=== PATIENT | female | born 1995 | race Caucasian/White ===

== ENCOUNTER → 2016-05-25 | Outpatient (CLI) | payer OTHER ==
--- NOTE | 2016-05-25 11:00 | USB ---
Reason for exam: clinical finding. US Breast LT Left breast ultrasound including all four quadrants, the retroareolar region and axilla demonstrates a 23 x 13 x 23mm solid, hypoechoic lesion with vascularity at palpable. These results were verbally communicated with the patient and result sheet given to the patient on 05/25/16. ASSESSMENT: Suspicious, BI-RAD 4 RECOMMENDATION: Ultrasound core biopsy of the left breast. Called Dr. Carbajal with mammographic findings and has scheduled an appointment for the patient for 06/21/16 at 10:[address] Godwin. Ultrasound core biopsy scheduled for 05/31/16 at 8:00. PRELIMINARY REPORT CALLED AND FAXED TO DR. GODWIN ON 05/25/16 AT 300/TP.
== END | disposition home or self-care (01) ==
LOC: RADUSWWP 08:37
PROVIDERS: ATTEND Pediatrics
DX: R92.8 Other abnormal and inconclusive findings on diagnostic imaging of breast (principal); N63 Unspecified lump in breast

== ENCOUNTER → 2016-05-31 | Day surgery (SDC) | payer OTHER ==
[~2016-05-31] MED LIST: ALPRAZolam 0.25 MG TAB ONE; BACITRACIN OINT 1 EACH PACKET TOPICAL ONE; LIDOCAINE 1% INJ 10MG/ML (20 ML MDV) ONE; SODIUM BICARB 4% 5 ML VIAL (0.48 MEQ/ML) ONE
--- NOTE | 2016-05-31 11:45 | USB ---
EXAMINATION TYPE: US biopsy breast VAD LT DATE OF EXAM: 05/31/2016 10:04 AM CLINICAL HISTORY: 21-year-old female with palpable left breast mass referred for core biopsy. TECHNIQUE: Ultrasound guided core biopsy of the 1:00 palpable left breast mass. COMPARISON: Ultrasound 05/25/2016 FINDINGS: The procedure of ultrasound guided core biopsy was explained to the patient. Benefits, alternatives, and risks were discussed. An informed consent was then obtained. The patient was placed in supine positioning for imaging and for the procedure. The overlying skin was prepped and draped in usual sterile fashion. Lidocaine buffered with bicarbonate was used as anesthetic into the skin and subcutaneous tissue up to area of concern in the left breast. Under ultrasound guidance, a 13-gauge vacuum-assisted mammotome Elite biopsy gun was used to obtain 6 core samples. Following this, a coil clip was left in lesion. Postbiopsy mammogram was not performed given patient's young age. The patient tolerated the procedure well without any immediate complication. The patient was kept in the radiology department for short stay after the procedure and then discharged home in stable condition. IMPRESSION: Successful, uncomplicated ultrasound guided core biopsy of palpable left breast mass in the 1:00 position; full pathology results to follow. Pathology Results: Benign BREAST, LEFT, ULTRASOUND GUIDED CORE BIOPSY: FRAGMENTS OF FIBROADENOMA WITH JUVENILE FEATURES. Recommendation Surgical excision can be considered if symptomatic. Otherwise, routine annual screening mammography should begin at 40 years of age unless there is a clinical indication to start sooner. [facility]
== END ==
LOC: RADUSWWP 08:01
PROVIDERS: ATTEND Surgery
DX: D24.2 Benign neoplasm of left breast (principal)
CPT/HCPCS: 88305; 19083; A4648; J2001